=== PATIENT | female | born 1960 | race Caucasian/White ===

== ENCOUNTER 2019-03-19 19:09 | Emergency (ER) | payer MEDICAID, OTHER ==
[~2019-03-19] VITALS: Ht 157.5 cm; Wt 88.0 kg
[~2019-03-19 19:09] MED LIST: ALEN70TA5 PO; ASPI-817 PO; GLIP10TA14 PO; HYDR-4011 PO; LISI-313 PO; METF100010 PO; NALO4SPR NS; NAPR-985 PO; OMEG1CAP2 PO; SIMV10TA PO
[2019-03-19 19:13] VITALS: Ht 157.5 cm; Wt 88.0 kg
[2019-03-19] MEDS ORDERED: DIAZEPAM 5 MG TAB PO ONE (21:30)
[2019-03-19] MEDS ORDERED: IBUPROFEN 800 MG TAB PO ONE (21:30)
[2019-03-19 22:48] VITALS: BP 112/58; PULSE 75; RESP 16
== END 2019-03-19 22:49 | disposition home or self-care (01) ==
LOC: FTE 19:09
DX: S89.91XA Unspecified injury of right lower leg, initial encounter (principal); I10 Essential (primary) hypertension; W01.0XXA Fall on same level from slipping, tripping and stumbling without subsequent striking against object, initial encounter; Y92.000 Kitchen of unspecified non-institutional (private) residence as the place of occurrence of the external cause
CPT/HCPCS: 73550; 93971; Z7502; Z7610

== ENCOUNTER 2019-03-21 10:56 | Emergency (ER) | payer OTHER ==
[~2019-03-21] VITALS: Ht 157.5 cm; Wt 82.7 kg
[2019-03-21 11:08] VITALS: Ht 157.5 cm; Wt 82.7 kg
[2019-03-21 14:45] VITALS: BP 116/72; PULSE 80; RESP 16
== END 2019-03-21 14:45 | disposition home or self-care (01) ==
LOC: E/R 10:56
DX: S89.91XA Unspecified injury of right lower leg, initial encounter (principal); I10 Essential (primary) hypertension; E11.9 Type 2 diabetes mellitus without complications; W19.XXXA Unspecified fall, initial encounter; Y92.9 Unspecified place or not applicable; Z79.84 Long term (current) use of oral hypoglycemic drugs; Z79.82 Long term (current) use of aspirin
CPT/HCPCS: 36415; 73562; 80048; 84484; 85025; 93005; Z7502